=== PATIENT | male | born 1990 | race Two or more races ===

== ENCOUNTER 2017-08-20 18:29 | Emergency (ER) | payer OTHER ==
[~2017-08-20] VITALS: Ht 172.7 cm; Wt 68.0 kg
== END 2017-08-20 22:39 | disposition home or self-care (01) ==
LOC: ER 18:29
DX: K62.5 Hemorrhage of anus and rectum (principal)

== ENCOUNTER 2018-12-21 05:30 | Day surgery (SDC) | payer OTHER | END 2018-12-21 10:50 | disposition home or self-care (01) | LOC: CIR.AMB 05:30 | DX: D10.39 Benign neoplasm of other parts of mouth (principal) ==